=== PATIENT | male | born 1960 | race Caucasian/White ===

== ENCOUNTER → 2023-10-13 07:37 | Outpatient (REF) | payer OTHER, SELFPAY | LOC: RAD 07:37 | PROVIDERS: ATTENDING PHYSICIAN Family Medicine | DX: M25.571 Pain in right ankle and joints of right foot (principal) | CPT/HCPCS: 73610 ==

== ENCOUNTER → 2025-04-17 07:50 | Outpatient (REF) | payer SELFPAY | LOC: HWRAD 07:50 | PROVIDERS: ATTENDING PHYSICIAN Family Medicine | DX: E78.5 Hyperlipidemia, unspecified (principal) | CPT/HCPCS: 75571 ==